=== PATIENT | female | born 2000 | race Caucasian/White ===

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

== ENCOUNTER 2020-02-23 10:39 | Emergency (ER) | payer BC, MEDICAID ==
[2020-02-23 10:59] VITALS: BP 142/80; PULSE 86
[2020-02-23] MEDS ORDERED: GI Cocktail Oral Solution 30 ML PO ONE (11:07)
[2020-02-23 11:49] LABS: CHLORIDE,CL 107 mmol/L (98-107); SODIUM,NA 141 mmol/L (136-145)
[2020-02-23 11:50] LABS: ANION GAP 12.9 mmol/L (10-20)
[2020-02-23] MEDS ORDERED: LORazepam 1 MG Tab PO ONE (11:51)
--- NOTE | 2020-02-23 11:58 | EDM.PDOC ---
ED HPI GENERAL MEDICAL PROBLEM - General Chief Complaint: Chest Pain Stated Complaint: CHEST Time Seen by Provider: 02/23/20 10:40 Source of Information: Reports: Patient History Limitations: Reports: No Limitations - History of Present Illness INITIAL COMMENTS - FREE TEXT/NARRATIVE: Patient comes emergency department today with complaints of chest pain. This patient relates over the past week she has had intermittent sharp shooting stabbing midsternal chest pain that comes and goes on its own. Slowly gotten worse over the past day or so. She really does not have any shortness of breath cough or congestion. No fever no chills. No weakness dizziness lightheadedness. No syncope. No abdominal pain no nausea or vomiting. No hematuria dysuria or urinary frequency. No black or tarry stools. She also relates over the past 5 to 6 days that she has had some burning sensation up her midsternum and a sour taste in her throat. She wonders if she does not have heartburn as she has had this in the past. Although she has not tried anything for pain. She does struggle with anxiety in the chronic basis and she just recently was started on venlafaxine. Does admit that her anxiety has been worse over the past couple of weeks but does not elaborate on any cause or issues worsening her anxiety. She denies any suicidal ideation or homicidal ideation. No Covid exposure no COvid symptoms. Middle Chest Pain Score (Numeric/FACES): 5 - Related Data Allergies Allergy/AdvReac Type Severity Reaction Status Date / Time topical alcohol Allergy skin Uncoded 02/23/20 11:03 irritation Home Meds: Home Meds ISOtretinoin [Claravis] 40 mg PO BID 02/23/20 [History] Omeprazole 20 mg PO DAILY #28 tablet. 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 Musculoskeletal History: Reports: None Neurological History: Reports: None Psychiatric History: Reports: Anxiety, Depression Endocrine/Metabolic History: Reports: None Hematologic History: Reports: None Immunologic History: Reports: None Oncologic (Cancer) History: Reports: None Dermatologic History: Reports: None Other Dermatologic History: Acne - Infectious Disease History Infectious Disease History: Reports: None - Past Surgical History Head Surgeries/Procedures: Reports: None Social & Family History - Family History Family Medical History: No Pertinent Family History - Tobacco Use Tobacco Use Status *Q: Never Tobacco User - Caffeine Use Caffeine Use: Reports: None - Living Situation & Occupation Living situation: Reports: with Family Occupation: Student ED ROS GENERAL - Review of Systems Review Of Systems: Comprehensive ROS is negative, except as noted in HPI. ED EXAM, GENERAL - Physical Exam Exam: See Below Exam Limited By: No Limitations General Appearance: Alert, WD/WN, No Apparent Distress Ears: Normal External Exam Nose: Normal Inspection, Normal Mucosa Throat/Mouth: Normal Inspection, Normal Lips, Normal Teeth, Normal Gums, Normal Oropharynx, Normal Voice, No Airway Compromise Head: Atraumatic, Normocephalic Neck: Normal Inspection, Supple, Non-Tender, Full Range of Motion Respiratory/Chest: No Respiratory Distress, Lungs Clear, No Accessory Muscle Use, Chest Non-Tender, Respiratory Distress Cardiovascular: Normal Peripheral Pulses, Regular Rate, Rhythm GI/Abdominal: Normal Bowel Sounds, Soft, Non-Tender Back Exam: Normal Inspection, Full Range of Motion Extremities: Normal Inspection, No Pedal Edema, Normal Capillary Refill Neurological: Alert, Oriented, No Motor/Sensory Deficits Psychiatric: Anxious (The patient appears quite anxious. She has poor eye contact. Her eyes are darting around the room. She is constantly fidgeting and playing with her hands and wringing her hands and constant motion on the bed.) Skin Exam: Warm, Dry, Normal Color #1 Interpretation EKG Date: 02/23/20 Time: 10:51 Rhythm: NSR Rate (Beats/Min): 84 Norton: Normal P-Wave: Present QRS: Normal ST-T: Normal QT: Normal Course - Vital Signs Last Recorded V/S: Last Vital Signs Temp 97.9 F 02/23/20 10:43 Pulse 86 11/23/20 10:43 Resp 18 02/23/20 10:43 BP 142/80 H 02/23/20 10:43 Pulse Ox 99 02/23/20 10:43 - Orders/Labs/Meds Labs: Laboratory Tests 02/23/20 02/23/20 Range/Units 11:12 11:12 WBC 7.7 (4.0-10.0) x10^3/uL RBC 4.88 (4.00-5.50) x10^6/uL Hgb 14.3 (12.0-16.0) g/dL Hct 42.3 (33.0-47.0) % MCV 86.7 (78.0-93.0) fL MCH 29.3 (26.0-32.0) pg MCHC 33.8 (32.0-36.0) g/dL RDW Coeff of Cr 13.0 (10.0-15.0) % Plt Count 271 (130-400) x10^3/uL Neut % (Auto) 49.3 L (50.0-80.0) % Lymph % (Auto) 38.0 (25.0-50.0) % Dickenson % (Auto) 10.7 (2.0-11.0) % Eos % (Auto) 1.6 (0.0-4.0) % Baso % (Auto) 0.4 (0.2-1.2) % Sodium 141 (136-145) mmol/L Potassium 3.9 (3.5-5.1) mmol/L Chloride 107 (98-107) mmol/L Carbon Dioxide 25 (21-32) mmol/L Anion Gap 12.9 (10-20) mmol/L BUN 13 (7-18) mg/dL Creatinine 0.8 (0.55-1.02) mg/dL Est Cr Clr Drug Dosing TNP Estimated GFR (MDRD) > 60 Glucose 145 H (74-106) mg/dL Calcium 8.9 (8.5-10.1) mg/dL Corrected Calcium 9.06 (8.5-10.1) mg/dL Total Bilirubin 0.3 (0.2-1.0) mg/dL AST 19 (15-37) U/L ALT 51 (14-59) U/L Alkaline Phosphatase 107 (46-116) U/L Troponin I < 0.017 (<=0.056) ng/mL Total Protein 7.5 (6.4-8.2) g/dL Albumin 3.8 (3.4-5.0) g/dL Globulin 3.7 Albumin/Globulin Ratio 1.03 Meds: Medications Discontinued Medications Generic Name Dose Route Start Last Admin Trade Name Freq PRN Reason Stop Dose Admin Al Hydroxide/Mg Hydroxide 30 ml 02/23/20 11:07 02/23/20 11:15 Gi Cocktail PO 02/23/20 11:08 30 ml ONETIME ONE Administration Lorazepam 1 mg 02/23/20 11:51 02/23/20 11:58 Ativan PO 02/23/20 11:52 1 mg ONETIME ONE Administration - Re-Assessments/Exams Free Text/Narrative Re-Assessment/Exam: 02/23/20 Patient initially was given a GI cocktail with about what she relates is 90% improvement of her chest pain. There is some residual tightness. She continues to be anxious. Ativan 1 mg p.o. Laboratory evaluation is unremarkable to include a troponin of less than 0.017. I really think that this is a sequelae of possibly 2 different processes going on. She probably has some underlying heartburn that she is complained about over the last week which is improved with a GI cocktail. We will start her on Carafate as well as omeprazole. And her longstanding history of anxiety could be worse with some recent social issues that she has not sharing today and she has only been on her venlafaxine for about a month which can take a little bit longer to be therapeutic. We will use some hydroxyzine as needed for some acute anxiety management. She is comfortable with this plan and her questions are answered. Departure - Departure Time of Disposition: 11:52 Disposition: Home, Self-Care 01 Clinical Impression: Chest pain, non-cardiac, Anxiety Gastroesophageal reflux disease Qualifiers: Esophagitis presence: esophagitis presence not specified Qualified Code(s): K21.9 - Gastro-esophageal reflux disease without esophagitis - Discharge Information Prescriptions: Sucralfate [Carafate] 1 gm PO QIDACANDBED #120 tablet hydrOXYzine HCL [Atarax] 50 mg PO Q8H PRN #12 tab PRN Reason: Anxiety Omeprazole 20 mg PO DAILY #28 tablet. Instructions: Nonspecific Chest Pain, Adult, [id number], Gastroesophageal Reflux Disease, Adult, [id number], Managing Anxiety, Adult Referrals: Viridiana Florez MD [Primary Care Provider] - Forms: ED Department Discharge Additional Instructions: For acute episodes of the symptoms today. Try OTC Maalox or Mylanta. Carafate 1 tablet 4 times a day 1/2hr before meals and at bedtime. RX to [facility]. Omeprazole 1 capsule daily for the next 28 days. Rx to [facility]. For anxiety, Hydroxyzine, 1 tablet three times a day as needed for anxiety. Caution sedation. Rx to [facility]. Return to the ED if new or worsening symptoms. Follow up with PCP in the next 7 days if not improving sooner if worse. Sepsis Event Note (ED) - Evaluation Sepsis Screening Result: No Definite Risk - Focused Exam Vital Signs: Vital Signs Temp Pulse Resp BP Pulse Ox 02/23/20 10:43 97.9 F 86 18 142/80 H 99
== END 2020-02-23 12:05 | disposition home or self-care (01) ==
LOC: VM.ED 10:39
DX: K21.9 Gastro-esophageal reflux disease without esophagitis (principal); F41.9 Anxiety disorder, unspecified; F32.9 Major depressive disorder, single episode, unspecified; Z79.899 Other long term (current) drug therapy; Z91.048 Other nonmedicinal substance allergy status
CPT/HCPCS: 36415; 80053; 84484; 85025; 93005; 93010; 99284; 99285; A9270

== ENCOUNTER 2020-02-27 22:54 | Emergency (ER) | payer BC, MEDICAID ==
--- NOTE | 2020-02-27 23:44 | EDM.PDOC ---
ED HPI GENERAL MEDICAL PROBLEM - General Chief Complaint: Chest Pain Stated Complaint: DIZZY;CHEST PAIN Time Seen by Provider: 02/27/20 23:25 Source of Information: Reports: Patient History Limitations: Reports: No Limitations (Pt. prese) - History of Present Illness INITIAL COMMENTS - FREE TEXT/NARRATIVE: Pt. presents to ER with complaints of intermittent substernal chest discomfort, vomiting, and lightheadedness. She states that the discomfort is worse with deep breathing. She has only vomited once. Was seen in ER on 02/22 and has been seen with similar symptoms. At that time, she had symptoms of GERD. She was started on medications for this but states that it has not helped. She was also seen in ER in Dec. with respirophasic chest pain and was diagnosed with costoch ondritis. Pt. denies any fever or chills. Denies any cough. No chest congestion. No diarrhea. She does complain of headache. Denies any head trauma. No numbness/tingling in extremities. No difficulty with speech or ambulation. Onset Date: 02/26/20 Location: Reports: Chest Quality: Reports: Sharp Severity: Moderate Associated Symptoms: Reports: Chest Pain, Headaches. Denies: Confusion, Cough, cough w sputum, Diaphoresis, Fever/Chills, Loss of Appetite, Malaise, Nausea /Vomiting, Rash, Seizure, Shortness of Breath, Syncope, Weakness Mid - Chest Pain Pain Score (Numeric/FACES): 4 - Related Data Allergies Allergy/AdvReac Type Severity Reaction Status Date / Time topical alcohol Allergy skin Uncoded 02/28/20 00:10 irritation Home Meds: Home Meds ISOtretinoin [Claravis] 40 mg PO BID 02/23/20 [History] Omeprazole 20 mg PO DAILY #28 tablet. 02/23/20 [Rx] Sucralfate [Carafate] 1 gm PO QIDACANDBED #120 tablet 02/23/20 [Rx] Venlafaxine HCl [Venlafaxine ER] 37.5 mg PO DAILY 02/23/20 [History] hydrOXYzine HCL [Atarax] 50 mg PO Q8H PRN #12 tab 02/23/20 [Rx] Past Medical History - Past Health History Medical/Surgical History: Denies Medical/Surgical History HEENT History: Reports: Impaired Vision Other HEENT History: wears glasses Cardiovascular History: Reports: Heart Murmur Respiratory History: Reports: None Gastrointestinal History: Reports: None Genitourinary History: Reports: None [employer] History: Reports: Endometriosis Musculoskeletal History: Reports: None Neurological History: Reports: None Psychiatric History: Reports: Anxiety, Depression Endocrine/Metabolic History: Reports: None Hematologic History: Reports: None Immunologic History: Reports: None Oncologic (Cancer) History: Reports: None Dermatologic History: Reports: None Other Dermatologic History: Acne - Infectious Disease History Infectious Disease History: Reports: None - Past Surgical History Head Surgeries/Procedures: Reports: None Social & Family History - Family History Family Medical History: No Pertinent Family History - Caffeine Use Caffeine Use: Reports: None - Living Situation & Occupation Living situation: Reports: with Family Occupation: Student ED ROS GENERAL - Review of Systems Review Of Systems: See Below Constitutional: Reports: No Symptoms HEENT: Reports: No Symptoms, Vertigo Respiratory: Reports: Pleuritic Chest Pain. Denies: Shortness of Breath, Wheezing, Cough, Hemoptysis Cardiovascular: Reports: Chest Pain Endocrine: Reports: No Symptoms GI/Abdominal: Reports: No Symptoms : Reports: No Symptoms Musculoskeletal: Reports: No Symptoms Skin: Reports: No Symptoms Neurological: Reports: Headache Psychiatric: Reports: No Symptoms Hematologic/Lymphatic: Reports: No Symptoms ED EXAM, GENERAL - Physical Exam Exam: See Below Exam Limited By: No Limitations General Appearance: Alert, WD/WN, No Apparent Distress Eye Exam: Bilateral Eye: EOMI, Normal Fundi, Normal Inspection, PERRL Throat/Mouth: Normal Inspection, Normal Lips, Normal Teeth, Normal Oropharynx, Normal Voice, No Airway Compromise Head: Atraumatic, Normocephalic Neck: Normal Inspection, Supple, Non-Tender, Full Range of Motion Respiratory/Chest: No Respiratory Distress, Lungs Clear, Normal Breath Sounds, No Accessory Muscle Use, Chest Non-Tender Cardiovascular: Normal Peripheral Pulses, Regular Rate, Rhythm, No Edema, No JVD, No Murmur Peripheral Pulses: 4+: Radial (L) GI/Abdominal: Soft, Non-Tender, No Distention, No Mass (Female) Exam: Deferred Rectal (Female) Exam: Deferred Back Exam: Normal Inspection, Full Range of Motion Extremities: Normal Inspection, Normal Range of Motion, No Pedal Edema, Normal Capillary Refill Neurological: Alert, Oriented, CN II-XII Intact, Normal Reflexes, No Motor/Sensory Deficits Psychiatric: Normal Affect, Normal Mood Skin Exam: Warm, Dry, Intact, No Rash Course - Vital Signs Last Recorded V/S: Last Vital Signs Temp 36.5 C 02/28/20 00:11 Pulse 90 02/28/20 00:11 Resp 14 02/28/20 00:11 BP 143/77 H 02/28/20 00:11 Pulse Ox 98 02/28/20 00:11 - Orders/Labs/Meds Labs: Laboratory Tests 02/27/20 02/27/20 02/27/20 Range/Units 22:58 23:49 23:49 WBC 8.5 (4.0-10.0) x10^3/uL RBC 4.96 (4.00-5.50) x10^6/uL Hgb 14.5 (12.0-16.0) g/dL Hct 43.1 (33.0-47.0) % MCV 86.9 (78.0-93.0) fL MCH 29.2 (26.0-32.0) pg MCHC 33.6 (32.0-36.0) g/dL RDW Coeff of Cr 12.9 (10.0-15.0) % Plt Count 261 (130-400) x10^3/uL Neut % (Auto) 58.9 (50.0-80.0) % Lymph % (Auto) 28.3 (25.0-50.0) % Putnam % (Auto) 11.3 H (2.0-11.0) % Eos % (Auto) 1.1 (0.0-4.0) % Baso % (Auto) 0.4 (0.2-1.2) % PT 9.7 (9.5-12.3) SEC INR 0.9 L (2.0-3.5) APTT (25.6-32.8) SEC D-Dimer, Quantitative 0.43 (<=0.58) mg/LFEU Sodium (136-145) mmol/L Potassium (3.5-5.1) mmol/L Chloride (98-107) mmol/L Carbon Dioxide (21-32) mmol/L Anion Gap (10-20) mmol/L BUN (7-18) mg/dL Creatinine (0.55-1.02) mg/dL Est Cr Clr Drug Dosing mL/min Estimated GFR (MDRD) Glucose (74-106) mg/dL Calcium (8.5-10.1) mg/dL Corrected Calcium (8.5-10.1) mg/dL Total Bilirubin (0.2-1.0) mg/dL AST (15-37) U/L ALT (14-59) U/L Alkaline Phosphatase (46-116) U/L Troponin I (<=0.056) ng/mL C-Reactive Protein (<=0.9) mg/dL Total Protein (6.4-8.2) g/dL Albumin (3.4-5.0) g/dL Globulin Albumin/Globulin Ratio SARS CoV-2 RNA Rapid JASVIR Negative (NEGATIVE) 02/27/20 02/27/20 Range/Units 23:49 23:49 WBC (4.0-10.0) x10^3/uL RBC (4.00-5.50) x10^6/uL Hgb (12.0-16.0) g/dL Hct (33.0-47.0) % MCV (78.0-93.0) fL MCH (26.0-32.0) pg MCHC (32.0-36.0) g/dL RDW Coeff of Cr (10.0-15.0) % Plt Count (130-400) x10^3/uL Neut % (Auto) (50.0-80.0) % Lymph % (Auto) (25.0-50.0) % Putnam % (Auto) (2.0-11.0) % Eos % (Auto) (0.0-4.0) % Baso % (Auto) (0.2-1.2) % PT (9.5-12.3) SEC INR (2.0-3.5) APTT 28.4 (25.6-32.8) SEC D-Dimer, Quantitative (<=0.58) mg/LFEU Sodium 141 (136-145) mmol/L Potassium 4.0 (3.5-5.1) mmol/L Chloride 103 (98-107) mmol/L Carbon Dioxide 27 (21-32) mmol/L Anion Gap 15.0 (10-20) mmol/L BUN 11 (7-18) mg/dL Creatinine 0.8 (0.55-1.02) mg/dL Est Cr Clr Drug Dosing 105.89 mL/min Estimated GFR (MDRD) > 60 Glucose 87 (74-106) mg/dL Calcium 9.1 (8.5-10.1) mg/dL Corrected Calcium 9.18 (8.5-10.1) mg/dL Total Bilirubin 0.3 (0.2-1.0) mg/dL AST 27 (15-37) U/L ALT 56 (14-59) U/L Alkaline Phosphatase 92 (46-116) U/L Troponin I < 0.017 (<=0.056) ng/mL C-Reactive Protein < 0.2 (<=0.9) mg/dL Total Protein 7.5 (6.4-8.2) g/dL Albumin 3.9 (3.4-5.0) g/dL Globulin 3.6 Albumin/Globulin Ratio 1.08 SARS CoV-2 RNA Rapid JASVIR (NEGATIVE) Meds: Medications Discontinued Medications Generic Name Dose Route Start Last Admin Trade Name Joshua PRN Reason Stop Dose Admin Prednisone 2 packet 02/28/20 01:57 02/28/20 02:01 Take Home: Prednisone 20 Mg, 2 Tab Pack PO 02/28/20 01:58 2 packet ONETIME ONE Administration Departure - Departure Time of Disposition: 02:10 Disposition: Home, Self-Care 01 Clinical Impression: Atypical chest pain - Discharge Information Instructions: Nonspecific Chest Pain, Adult, [id number], Prednisone tablets Referrals: Viridiana Florez MD [Primary Care Provider] - Forms: ED Department Discharge Additional Instructions: Home to rest. Ibuprofen 200mg 4 tabs every 8 hours. Take on a schedule. Prednisone 20mg 2 tabs every day Drink plenty of fluids Follow-up in clinic as needed. - Problem List Review Problem List Initiated/Reviewed/Updated: Yes - Assessment/Plan Plan: Home to rest. Ibuprofen 200mg 4 tabs every 8 hours. Take on a schedule. Prednisone 20mg 2 tabs every day Drink plenty of fluids Follow-up in clinic as needed.
[2020-02-28 00:19] VITALS: BP 143/77; PULSE 90
[2020-02-28 00:19] LABS: CHLORIDE,CL 103 mmol/L (98-107); SODIUM,NA 141 mmol/L (136-145)
[2020-02-28] MEDS: Take Home: predniSONE 20 MG, 2 Tab Pack PO ONE (02:01)
--- NOTE | 2020-02-28 06:59 | CR ---
[id number] RAD/RAD Chest PA And Lateral EXAM: RAD Chest PA And Lateral INDICATION: CHEST PAIN. LIGHTHEADED COMPARISON: December 19, 2019. DISCUSSION: Cardiomediastinal silhouette is normal in size and contour. Lungs are clear. No pleural effusion or pneumothorax. IMPRESSION: Negative examination of the chest. Anton Jones MD 02/28/20 0658 Thank you for allowing us to participate in the care of your patient.
== END 2020-02-28 02:10 | disposition home or self-care (01) ==
LOC: VM.ED 22:54 → SUPCPDRO 22:54 → VM.ED 02-28 02:10
DX: R07.89 Other chest pain (principal); R07.2 Precordial pain; F41.9 Anxiety disorder, unspecified; F32.9 Major depressive disorder, single episode, unspecified; Z91.048 Other nonmedicinal substance allergy status; Z79.899 Other long term (current) drug therapy; Z20.828 Contact with and (suspected) exposure to other viral communicable diseases
CPT/HCPCS: 36415; 71046; 80053; 84484; 85025; 85379; 85610; 85730; 86140; 93005; 99284; 99285-25; J7512; U0002

== ENCOUNTER 2021-10-07 21:04 | Emergency (ER) | payer BC, MEDICAID ==
[2021-10-07] MEDS ORDERED: hydrOXYzine HCl 50 MG/ML SDV IM ONE (21:07)
[2021-10-07 21:50] VITALS: BP 132/87; PULSE 100
== END 2021-10-07 21:57 | disposition home or self-care (01) ==
LOC: VM.ED 21:04
DX: F41.9 Anxiety disorder, unspecified (principal); Z91.048 Other nonmedicinal substance allergy status; Z79.899 Other long term (current) drug therapy
CPT/HCPCS: 96372; 99284; J3410

== ENCOUNTER 2022-05-30 18:45 | Emergency (ER) | payer OTHER, BC, MEDICAID ==
[2022-05-30 19:52] VITALS: BP 142/65; PULSE 91
== END 2022-05-30 20:35 | disposition home or self-care (01) ==
LOC: VM.ED 18:45
DX: S09.90XA Unspecified injury of head, initial encounter (principal); S70.02XA Contusion of left hip, initial encounter; S90.02XA Contusion of left ankle, initial encounter; Z88.8 Allergy status to other drugs, medicaments and biological substances; V47.5XXA Car driver injured in collision with fixed or stationary object in traffic accident, initial encounter; Y92.410 Unspecified street and highway as the place of occurrence of the external cause
CPT/HCPCS: 70450; 73610-LT; 99283; 99285